=== PATIENT | male | born 1975 | race Caucasian/White ===

== ENCOUNTER 2018-04-10 14:57 | Emergency (ER) | payer OTHER ==
[~2018-04-10] VITALS: Ht 185.4 cm; Wt 75.7 kg
[2018-04-10] MEDS ORDERED: SEPTDS PO (15:32)
[2018-04-10] MEDS ORDERED: CEPHALEXIN500 M1 PO (15:32)
== END 2018-04-10 15:35 | disposition home or self-care (01) ==
LOC: ED 14:57
DX: J34.0 Abscess, furuncle and carbuncle of nose (principal); Z88.8 Allergy status to other drugs, medicaments and biological substances

== ENCOUNTER 2019-10-05 13:55 | Inpatient (IN) | payer OTHER ==
[~2019-10-05] VITALS: Ht 185.4 cm; Wt 70.9 kg
[~2019-10-05 13:55] MED LIST: CEPHALEXIN500 M1 PO; SEPTDS PO
--- NOTE | 2019-10-05 14:55 | NUR ---
year old \ admitted to room # for stabilization. Reports an addiction to last used hours prior to admission. Compliant with admission procedure. Patient denies any anxiety, but is unable to sit still, taps toes to floor continuously, looks about room, unable to focus eyes on nurse during interview. See assessment forms for additional information about patient status.
--- NOTE | 2019-10-05 14:55 | NUR ---
44 year old MALE admitted to room # 531 for stabilization. 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 Compliant with admission procedure. Patient C/O MUSCLE ACHES, CHILLS, AND NAUSEA. See assessment forms for additional information about patient status.
--- NOTE | 2019-10-05 15:02 | NUR ---
PATIENT MEETS [facility]. CINA=[id number]. PATIENT IS GOING TO FOLLOW UP WITH [facility] IN [place] FOR HIS AFTERCARE PLAN. LUTHER PASTRANA B.A. RESEARCH KENNEL SUPERVISOR
[2019-10-05 15:28] VITALS: BP 114/71
[2019-10-05] MEDS ORDERED: PEPCID20 MG PO (15:37)
[2019-10-05] MEDS ORDERED: CARAFATE1 G1 PO (15:37)
[2019-10-05 16:00] VITALS: BP 114/71
[2019-10-05 16:06] LABS: BILIRUBIN NEGATIVE (NEGATIVE); BLOOD NEGATIVE (NEGATIVE); CLARITY CLEAR (CLEAR); COLOR YELLOW (YELLOW); GLUCOSE NEGATIVE (NEGATIVE); KETONE NEGATIVE (NEGATIVE); LEUKO ESTERASE NEGATIVE (NEGATIVE); NITRITE NEGATIVE (NEGATIVE); SPECIFIC GRAVITY 1.005 (1.005-1.030); UROBILINOGEN 0.2 E.U./dl (0.2-1.0)
[2019-10-05 16:13] LABS: URINE AMPHETAMINES > 1000 (1000ng/ml); URINE BARBITURATES < 200 (200ng/ml); URINE BENZODIAZEPINES < 200 (200ng/ml); URINE CANNABINOIDS (THC) < 50 (50ng/ml); URINE COCAINE < 300 (300ng/ml); URINE METHADONE < 300 (300ng/ml); URINE OPIATES < 300 (300ng/ml)
[2019-10-05 16:14] LABS: BACTERIA TRACE; EPITHELIAL CELLS 0-2; RBC 0-2 rbc/hpf (0-2)
[2019-10-05 16:17] LABS: URINE PHENCYCLIDINE < 25 (25ng/ml)
--- NOTE | 2019-10-05 16:18 | NUR ---
PATIENT MEDICATED IW IV ZOFRAN, VISTARIL, ROBAXIN, AND NICODERM PATCH FOR COMPLAINTS OF NAUSEA, ANXIETY, MUSCLE ACHES, AND NICOTINE CRAVING. WILL MONITOR.
[2019-10-05 16:26] LABS: BASO % 0.3 % (0.0-1.0); EOS % 0.6 % (1.0-4.0); HEMATOCRIT 41.4 % (42.0-52.0); LYMPH # 1.5 10*3/uL (1.3-4.4); LYMPH % 23.1 % (27.0-41.0); MEAN CELL VOLUME 86.1 fl (80.0-94.0); MEAN CORPUSCULAR HGB 28.5 pg (27.0-31.0); MEAN CORPUSCULAR HGB CONC 33.1 g/dl (33.0-37.0); MEAN PLATELET VOLUME 11.2 fl (9.6-12.3); MONO # 0.3 10*3/uL (0.1-1.0); MONO % 4.4 % (3.0-9.0); NEUT # 4.7 10*3/uL (2.3-7.9); NEUT % 71.4 % (47.0-73.0); PLATELET COUNT AUTOMATED 216 10*3/uL (130-400); RED BLOOD COUNT 4.81 10*6/uL (4.50-5.90); RED CELL DISTRI WIDTH 14.6 % (0-14.5); WHITE BLOOD COUNT 6.6 10*3/uL (4.8-10.8)
[2019-10-05 16:44] LABS: ALBUMIN 3.5 gm/dl (3.1-4.5); ALKALINE PHOSPHATASE 69 U/L (45-117); BUN 10 mg/dl (7-24); CHLORIDE 112 mmol/L (98-107); CREATININE 0.79 mg/dL (0.70-1.30); ETHYL ALCOHOL < 3.0 mg/dl (<3); POTASSIUM 4.1 mmol/L (3.5-5.1); SGOT/AST 9 IU/L (3-35); SGPT/ALT 14 U/L (12-78); SODIUM 142 mmol/L (136-145); TOTAL PROTEIN 7.2 gm/dL (6.4-8.2)
--- NOTE | 2019-10-05 17:18 | NUR ---
PT STATES THAT MEDICATION IS STARTING TO HELP. EATING DINNER AT THIS TIME. MEDICATION APPESR TO HAVE BEEN EFFECTIVE. CALL LIGHT WITHIN REACH.
[2019-10-05 20:00] VITALS: BP 114/63
--- NOTE | 2019-10-05 20:00 | NUR ---
ANXIOUS, AGITATED. CURSING AT STAFF. EXPLAINED TO PATIENT THAT WAS NOT EXCEPTABLE. MED REC REVIEWED. PATIENT PROVIDED WITH SNACK. WILL MONITOR
--- NOTE | 2019-10-05 21:14 | NUR ---
24 HR chart check completed.
--- NOTE | 2019-10-05 22:36 | NUR ---
Patient displaying withdrawal symptoms, including: irritability, anxiousness, restlessness and agitation. Scheduled/PRN medications provided, SEE EMAR. Will continue to monitor medication effectiveness.
--- NOTE | 2019-10-05 23:15 | NUR ---
Patient resting. Responding to scheduled medications with fewer complaints of pain and anxiety.
[2019-10-06] VITALS: BP 116/64
--- NOTE | 2019-10-06 03:00 | NUR ---
Patient resting. Responding to scheduled medications with fewer complaints of pain and anxiety.
[2019-10-06 04:00] VITALS: BP 112/58
--- NOTE | 2019-10-06 06:15 | NUR ---
Patient resting. Responding to scheduled medications with fewer complaints of pain and anxiety.
[2019-10-06 08:00] VITALS: BP 114/67
--- NOTE | 2019-10-06 08:00 | NUR ---
PATIENT RESTING IN BED. CO ABDOMINAL PAIN AND RESTLESS LEGS. VOICES NO OTHER CONCERNS. DENIES N/V. PATIENT STATES HE HAD SEVERAL EPISODES OF DIARRHEA YESTERDAY, BUT HAS NOT HAD ANY TODAY. ASSESSMENT COMPLETE. RESPS EASY AND REGULAR. CALL LIGHT IN REACH.
--- NOTE | 2019-10-06 08:18 | NUR ---
MEDICATED WITH PRN BENTYL FOR CO ABDOMINAL PAIN. WILL ASSESS EFFECTIVENESS
--- NOTE | 2019-10-06 08:19 | NUR ---
MEDICATED WITH PRN REQUIP FOR CO RESTLESS LEGS. WILL ASSESS EFFECITVENESS.
--- NOTE | 2019-10-06 09:18 | NUR ---
PER PATIENT BENTYL EFFECTIVE.
--- NOTE | 2019-10-06 09:19 | NUR ---
PER PT REQUIP EFFECTIVE.
--- NOTE | 2019-10-06 11:12 | NUR ---
24 HR chart check completed.
--- NOTE | 2019-10-06 14:46 | NUR ---
Patient signed out AMA. Patient encouraged to stay and advised of possible consequences of premature discharge. Physician and sorority supervisor DENA notified. Patient instructed what to do regarding care post-departure from the hospital; emergency phone numbers provided. Patent was accompanied by PROVIDE A RIDE. YUSRA MULLINS
== END 2019-10-06 14:50 | disposition left against medical advice (07) | DRG 770 ==
LOC: 5E 13:55
PROVIDERS: Internal Medicine; Podiatrist Foot & Ankle Surgery; ADMIT Family Medicine
DX: F11.23 Opioid dependence with withdrawal (principal); F17.210 Nicotine dependence, cigarettes, uncomplicated; G25.81 Restless legs syndrome; D64.9 Anemia, unspecified; R73.9 Hyperglycemia, unspecified; E87.8 Other disorders of electrolyte and fluid balance, not elsewhere classified; K27.9 Peptic ulcer, site unspecified, unspecified as acute or chronic, without hemorrhage or perforation; Z53.29 Procedure and treatment not carried out because of patient's decision for other reasons; Z79.899 Other long term (current) drug therapy; Z88.8 Allergy status to other drugs, medicaments and biological substances